=== PATIENT | female | born 1995 | race Caucasian/White ===

== ENCOUNTER 2017-12-14 20:55 | Inpatient (IN) | payer MEDICAID ==
[~2017-12-14] VITALS: Ht 149.9 cm; Wt 65.6 kg
[~2017-12-14 20:55] MED LIST: CEFU250T PO; HYDR-3240 PO; HYDR50CA PO; NORG1TAB6 PO; OXYC5TAB3 PO; PHEN177S47 MM; PRED10TA14 PO
[2017-12-14] MEDS ORDERED: SODIUM CHLORIDE 0.9% 1,000 ML IV ONE (22:18)
[2017-12-14 22:29] LABS: HCG UR SG 1.041 (1.003-1.030)
[2017-12-14] MEDS ORDERED: ACETAMINOPHEN 325 MG TABLET PO ONE (22:30)
[2017-12-14] MEDS ORDERED: ONDANSETRON 2MG/ML, 2ML IVPush ONE (22:30)
[2017-12-14] MEDS ORDERED: KETOROLAC 30 MG/1 ML IVPush ONE (22:30)
[2017-12-14] MEDS ORDERED: PROMETHAZINE 25 MG/ML, 1ML IM ONE (22:30)
[2017-12-14] MEDS ORDERED: SODIUM CHLORIDE 0.9% 1,000ML IVBOLUS ONE (22:30)
[2017-12-14] MEDS ORDERED: SODIUM CHLORIDE FLUSH 10ML SYR IVF ONE (22:30)
[2017-12-14 22:32] LABS: MICROSCOPIC INDICATED
[2017-12-14] MEDS ORDERED: KETOROLAC 30 MG/1 ML ONE (22:33)
[2017-12-14] MEDS ORDERED: PROMETHAZINE 25 MG/ML, 1ML ONE (22:33)
[2017-12-14] MEDS ORDERED: MORPHINE SULFATE 4 MG/ML, 1ML ONE (22:33)
[2017-12-14] MEDS ORDERED: ACETAMINOPHEN 325 MG TABLET ONE (22:33)
[2017-12-14] MEDS ORDERED: ONDANSETRON 2MG/ML, 2ML ONE (22:34)
[2017-12-14 22:35] LABS: BASOPHILS # (AUTO) 0.02 x10^3/uL (0-0.3); BASOPHILS % (AUTO) 0 % (0-1); EOSINOPHILS # (AUTO) 0.02 x10^3/uL (0-0.8); EOSINOPHILS % (AUTO) 0 % (1-7); LYMPHOCYTES # (AUTO) 0.67 x10^3/uL (1-6.1); LYMPHOCYTES % (AUTO) 12 % (22-44); MD NO; MEAN CORPUSCULAR HEMOGLOBIN 29.3 pg (27.0-34.8); MEAN CORPUSCULAR HGB CONC 34.1 g/dL (32.4-35.8); MEAN CORPUSCULAR VOLUME 85.9 fL (80-100); MEAN PLATELET VOLUME 8.5 fL (7.4-10.4); MONOCYTES # (AUTO) 0.67 x10^3/uL (0-1.4); MONOCYTES % (AUTO) 12 % (2-9); NEUTROPHILS # (AUTO) 4.21 x10^3/uL (1.8-8.0); NEUTROPHILS % (AUTO) 75 % (42-75); PLATELET COUNT 235 x10^3/uL (130-400); RED BLOOD COUNT 4.86 x10^6/uL (3.82-5.3); RED CELL DISTRIBUTION WIDTH 13.5 % (9.6-15.2)
[2017-12-14 22:39] LABS: CULTURE INDICATED? NO
[2017-12-14] MEDS: MORPHINE SULFATE 4 MG/ML, 1ML IVPush PRN (22:39)
[2017-12-14 22:47] LABS: ALANINE AMINOTRANSFERASE 34 U/L (12-78); ALBUMIN 4.2 g/dL (3.4-5.0); ANION GAP 13 mmol/L (5-15); CALCIUM 8.9 mg/dL (8.5-10.1); CHLORIDE 106 mmol/L (98-107); CREATININE 1.13 mg/dL (0.55-1.02)
[2017-12-14 22:50] LABS: ALKALINE PHOSPHATASE 75 U/L (45-117); BILIRUBIN,TOTAL 0.3 mg/dL (0.2-1.0); TOTAL PROTEIN 8.3 g/dL (6.4-8.2)
[2017-12-14] MEDS ORDERED: OMNIPAQUE 350 MG/ML, 100ML BOTTLE ONE (23:00)
[2017-12-15] MEDS ORDERED: MORPHINE SULFATE 4 MG/ML, 1ML ONE
[2017-12-15] MEDS: MORPHINE SULFATE 4 MG/ML, 1ML IVPush PRN (00:02)
[2017-12-15] MEDS ORDERED: ACETAMINOPHEN 325 MG TABLET PO PRN (01:00)
[2017-12-15] MEDS ORDERED: SODIUM CHLORIDE 0.9% 1,000 ML IV SCH (01:00)
[2017-12-15 01:34] VITALS: BP 107/59
[2017-12-15 01:56] VITALS: BP 107/59
[2017-12-15 04:51] LABS: ANION GAP 8 mmol/L (5-15); CALCIUM 7.2 mg/dL (8.5-10.1); CHLORIDE 114 mmol/L (98-107); CREATININE 0.81 mg/dL (0.55-1.02)
[2017-12-15] MEDS: KETOROLAC 30 MG/1 ML IVPush PRN ×2 (05:29→17:11)
[2017-12-15] MEDS: SODIUM BICARBONATE 8.4% 100 MEQ in DEXTROSE 5% 1,000 ML IV SCH ×2 (06:18→20:23)
[2017-12-15 06:23] LABS: GAMMA GLUTAMYL TRANSPEPTIDASE 14 U/L (5-55)
[2017-12-15 06:26] LABS: ALANINE AMINOTRANSFERASE 26 U/L (12-78); ALKALINE PHOSPHATASE 52 U/L (45-117)
[2017-12-15] MEDS: ONDANSETRON 2MG/ML, 2ML IVPush PRN (08:19)
[2017-12-15 08:47] VITALS: BP 104/63
[2017-12-15] MEDS ORDERED: PROCHLORPERAZINE 5 MG/ML, 2ML IM PRN (11:00)
[2017-12-15] MEDS ORDERED: MORPHINE SULFATE 4 MG/ML, 1ML IVPush PRN (11:00)
[2017-12-15] MEDS: PROCHLORPERAZINE 5 MG/ML, 2ML IV PRN ×2 (12:00→20:31)
[2017-12-15 15:02] VITALS: BP 112/69
[2017-12-15] MEDS: ACETAMINOPHEN 650 MG SUPP PR PRN ×2 (17:11→17:19)
[2017-12-15 20:28] VITALS: BP 99/58
[2017-12-16] MEDS ORDERED: KETOROLAC 30 MG/1 ML ONE (00:07)
[2017-12-16] MEDS: KETOROLAC 30 MG/1 ML IVPush PRN (00:12)
[2017-12-16 02:55] VITALS: BP 102/59
[2017-12-16] MEDS: PROCHLORPERAZINE 5 MG/ML, 2ML IV PRN (03:54)
[2017-12-16 05:06] LABS: CALCIUM 7.6 mg/dL (8.5-10.1); CHLORIDE 102 mmol/L (98-107)
[2017-12-16 05:12] LABS: ALANINE AMINOTRANSFERASE 26 U/L (12-78); ALKALINE PHOSPHATASE 49 U/L (45-117); ANION GAP 5 mmol/L (5-15); BILIRUBIN,TOTAL 0.2 mg/dL (0.2-1.0); CREATININE 0.67 mg/dL (0.55-1.02); MEAN CORPUSCULAR HEMOGLOBIN 29.3 pg (27.0-34.8); MEAN CORPUSCULAR HGB CONC 33.4 g/dL (32.4-35.8); MEAN CORPUSCULAR VOLUME 87.6 fL (80-100); MEAN PLATELET VOLUME 8.5 fL (7.4-10.4); PLATELET COUNT 179 x10^3/uL (130-400); RED BLOOD COUNT 3.97 x10^6/uL (3.82-5.3); RED CELL DISTRIBUTION WIDTH 13.3 % (9.6-15.2); TOTAL PROTEIN 5.8 g/dL (6.4-8.2)
[2017-12-16] MEDS: ONDANSETRON 2MG/ML, 2ML IVPush PRN (05:22)
[2017-12-16] MEDS: SODIUM BICARBONATE 8.4% 100 MEQ in DEXTROSE 5% 1,000 ML IV SCH (06:36)
[2017-12-16 06:41] LABS: BASOPHILS # (AUTO) 0.02 x10^3/uL (0-0.3); BASOPHILS % (AUTO) 1 % (0-1); EOSINOPHILS # (AUTO) 0.27 x10^3/uL (0-0.8); EOSINOPHILS % (AUTO) 7 % (1-7); LYMPHOCYTES # (AUTO) 2.05 x10^3/uL (1-6.1); LYMPHOCYTES % (AUTO) 51 % (22-44); MD SCAN; MONOCYTES # (AUTO) 0.36 x10^3/uL (0-1.4); MONOCYTES % (AUTO) 9 % (2-9); NEUTROPHILS # (AUTO) 1.33 x10^3/uL (1.8-8.0); NEUTROPHILS % (AUTO) 33 % (42-75)
[2017-12-16 07:40] VITALS: BP 127/68
[2017-12-16] MEDS: POTASSIUM CHLORIDE 40 MEQ in D5%-LACTATED RINGERS 1,000 ML IV SCH ×2 (08:30→16:40)
[2017-12-16] MEDS ORDERED: ONDANSETRON 2MG/ML, 2ML IVPush PRN (08:30)
[2017-12-16] MEDS ORDERED: KETOROLAC 30 MG/1 ML IVPush PRN (09:30)
[2017-12-16 11:31] LABS: FOLATE LEVEL 19.7 ng/mL (3.1-17.5)
[2017-12-16] MEDS ORDERED: SODIUM CHLORIDE 0.9% IV ONE (12:00)
[2017-12-16] MEDS ORDERED: PHARMACY INSTRUCTION MC ONE (12:00)
[2017-12-16] MEDS ORDERED: CAFFEINE CITRATE IV ONE (12:00)
[2017-12-16] MEDS ORDERED: morphine SULFATE 10 MG/ML, 1ML IVPush PRN (12:00)
[2017-12-16 12:12] VITALS: BP 100/61
[2017-12-16 18:33] LABS: CLOSTRIDIUM DIFFICILE ANTIGEN NEGATIVE; CLOSTRIDIUM DIFFICILE TOXIN NEGATIVE (Negative)
[2017-12-16 18:52] VITALS: BP 103/59
[2017-12-17] MEDS: POTASSIUM CHLORIDE 40 MEQ in D5%-LACTATED RINGERS 1,000 ML IV SCH ×2 (01:58→09:41)
[2017-12-17 02:00] VITALS: BP 107/63
[2017-12-17 07:04] VITALS: BP 96/55
[2017-12-17 14:19] VITALS: BP 109/71
== END 2017-12-17 15:30 | disposition home or self-care (01) | DRG 392 ==
LOC: ED 22:21 → EDIP 12-15 00:49 → 3NW 12-15 01:30
PROVIDERS: ADMIT Hospitalist; ATTEND Hospitalist
DX: A08.4 Viral intestinal infection, unspecified (principal); E87.2 Acidosis; R17 Unspecified jaundice; E66.3 Overweight; E86.0 Dehydration; K21.9 Gastro-esophageal reflux disease without esophagitis; Z87.440 Personal history of urinary (tract) infections; Z68.29 Body mass index [BMI] 29.0-29.9, adult
CPT/HCPCS: 36415; 71045; 74177; 80048; 80053; 81001; 81025; 82306; 82728; 82746; 82784; 82977; 83516; 83540; 83550; 83690; 83735; 84075; 84450; 84460; 84466; 85025; 86255; 87040; 87324; 96361; 96374; 96375; 96376; J1885; J2405; J2550; J3480; J7070; Q9967; J0780; J7030; J7040; J7121

== ENCOUNTER 2019-02-07 02:13 | Inpatient (IN) | payer MEDICAID ==
[~2019-02-07] VITALS: Ht 152.4 cm; Wt 76.3 kg
[2019-02-07] MEDS ORDERED: ONDANSETRON 2MG/ML, 2ML ONE (02:24)
[2019-02-07] MEDS ORDERED: PROMETHAZINE 25 MG/ML, 1ML ONE (02:24)
[2019-02-07] MEDS ORDERED: MORPHINE SULFATE 4 MG/ML, 1ML ONE (02:24)
[2019-02-07] MEDS ORDERED: FAMOTIDINE 20 MG/2 ML ONE (02:25)
[2019-02-07] MEDS ORDERED: ONDANSETRON 2MG/ML, 2ML IVPush ONE (02:30)
[2019-02-07] MEDS ORDERED: SODIUM CHLORIDE 0.9% 1,000ML IVBOLUS ONE (02:30)
[2019-02-07] MEDS ORDERED: FAMOTIDINE 20 MG/2 ML IVP ONE (02:30)
[2019-02-07] MEDS ORDERED: SODIUM CHLORIDE FLUSH 10ML SYR IVF ONE (02:30)
[2019-02-07] MEDS ORDERED: MORPHINE SULFATE 4 MG/ML, 1ML IVPush PRN (02:30)
[2019-02-07] MEDS ORDERED: PROMETHAZINE 25 MG/ML, 1ML IM ONE (02:30)
[2019-02-07 02:51] LABS: BASOPHILS % (AUTO) 0 % (0-1); EOSINOPHILS # (AUTO) 0.03 x10^3/uL (0-0.4); EOSINOPHILS % (AUTO) 0 % (1-7); LYMPHOCYTES % (AUTO) 13 % (22-44); MD NO; MEAN CORPUSCULAR HEMOGLOBIN 29.1 pg (27.0-34.8); MEAN CORPUSCULAR HGB CONC 33.9 g/dL (32.4-35.8); MEAN CORPUSCULAR VOLUME 85.8 fL (80-100); MEAN PLATELET VOLUME 7.4 fL (7.4-10.4); MONOCYTES # (AUTO) 0.13 x10^3/uL (0.2-0.8); MONOCYTES % (AUTO) 1 % (2-9); NEUTROPHILS # (AUTO) 10.07 x10^3/uL (1.8-6.8); NEUTROPHILS % (AUTO) 86 % (42-75); PLATELET COUNT 355 x10^3/uL (130-400); RED BLOOD COUNT 4.33 x10^6/uL (3.82-5.3)
[2019-02-07 03:08] LABS: ALANINE AMINOTRANSFERASE 31 U/L (12-78); ALBUMIN 3.9 g/dL (3.4-5.0); ANION GAP 10 mmol/L (5-15); CALCIUM 8.3 mg/dL (8.5-10.1); CHLORIDE 113 mmol/L (98-107); CREATININE 0.84 mg/dL (0.55-1.02)
[2019-02-07 03:12] LABS: ALKALINE PHOSPHATASE 77 U/L (45-117); BILIRUBIN,TOTAL 0.2 mg/dL (0.2-1.0); TOTAL PROTEIN 7.2 g/dL (6.4-8.2)
--- NOTE | 2019-02-07 03:13 | NUR ---
LATE ENTRY PT ARRIVED BY EMS FOR UPPER BURNING ABDOMINAL PAIN THAT STARTED TONIGHT. HAD 1 EMESIS EPISODE UPON ARRIVAL. PT HYPERVENTILATING, CRYING, AND GRABBING ABDOMEN. PT DID DRINK 1/2 GALLON OF [employer]. PHYSICIAN WAS AT BEDSIDE UPON ARRIVAL. MEDS ORDERED AND GIVEN. PT NOW SLEEPING. VSS.
--- NOTE | 2019-02-07 03:32 | NUR ---
PHYSICIAN AT BEDSIDE. UPDATED ON POC
--- NOTE | 2019-02-07 04:01 | NUR ---
REPORT GIVEN TO DOROTEO GRIFFIN. QUESTIONS ANSWERED.
[2019-02-07] MEDS ORDERED: morphine SULFATE 10 MG/ML, 1ML IVPush PRN (04:30)
[2019-02-07] MEDS ORDERED: ONDANSETRON 2MG/ML, 2ML IVPush PRN (04:30)
[2019-02-07] MEDS ORDERED: LORazepam 2 MG/ML, 1ML IVPush PRN (04:30)
[2019-02-07] MEDS ORDERED: hydrALAzine 20 MG/ML, 1ML IVPush PRN (04:30)
[2019-02-07] MEDS: SODIUM CHLORIDE 0.9% 1,000 ML IV SCH ×3 (04:41→23:51)
[2019-02-07 04:50] VITALS: BP 93/57
[2019-02-07 08:45] VITALS: BP 90/49
[2019-02-07] MEDS ORDERED: ACETAMINOPHEN 325 MG TABLET ONE ×2 (11:48)
[2019-02-07] MEDS: ACETAMINOPHEN 325 MG TABLET PO PRN ×2 (11:50→20:21)
[2019-02-07] MEDS ORDERED: POTASSIUM PHOSPHATE 44 MEQ in SODIUM CHLORIDE 0.9% 500 ML IV ONE (13:30)
[2019-02-07 14:03] VITALS: BP 94/58
[2019-02-07] MEDS: PANTOPRAZOLE 20MG TABLET PO SCH (15:54)
[2019-02-07 19:01] VITALS: BP 93/64
[2019-02-08 02:00] VITALS: BP 97/59
[2019-02-08] MEDS: PANTOPRAZOLE 20MG TABLET PO SCH (05:35)
[2019-02-08 05:55] LABS: CHLORIDE 113 mmol/L (98-107)
[2019-02-08 06:14] LABS: ALANINE AMINOTRANSFERASE 24 U/L (12-78); ALBUMIN 3.1 g/dL (3.4-5.0); ALKALINE PHOSPHATASE 65 U/L (45-117); ANION GAP 6 mmol/L (5-15); BILIRUBIN,TOTAL 0.4 mg/dL (0.2-1.0); CALCIUM 7.8 mg/dL (8.5-10.1); CREATININE 0.63 mg/dL (0.55-1.02); TOTAL PROTEIN 5.6 g/dL (6.4-8.2)
[2019-02-08 06:26] LABS: BASOPHILS # (AUTO) 0.04 x10^3/uL (0-0.1); BASOPHILS % (AUTO) 1 % (0-1); EOSINOPHILS # (AUTO) 0.48 x10^3/uL (0-0.4); EOSINOPHILS % (AUTO) 6 % (1-7); LYMPHOCYTES # (AUTO) 3.63 x10^3/uL (1-3.4); LYMPHOCYTES % (AUTO) 43 % (22-44); MD NO; MEAN CORPUSCULAR HEMOGLOBIN 29.4 pg (27.0-34.8); MEAN CORPUSCULAR HGB CONC 33.8 g/dL (32.4-35.8); MEAN PLATELET VOLUME 7.4 fL (7.4-10.4); MONOCYTES # (AUTO) 0.49 x10^3/uL (0.2-0.8); MONOCYTES % (AUTO) 6 % (2-9); NEUTROPHILS # (AUTO) 3.79 x10^3/uL (1.8-6.8); NEUTROPHILS % (AUTO) 45 % (42-75); PLATELET COUNT 250 x10^3/uL (130-400); RED BLOOD COUNT 3.86 x10^6/uL (3.82-5.3); RED CELL DISTRIBUTION WIDTH 14.2 % (9.6-15.2)
[2019-02-08] MEDS: SODIUM CHLORIDE 0.9% 1,000 ML IV SCH (07:46)
[2019-02-08 08:40] VITALS: BP 102/66
[2019-02-08] MEDS ORDERED: FOLIC ACID 1 MG TABLET PO SCH (09:00)
[2019-02-08] MEDS ORDERED: THIAMINE 100MG TABLET PO SCH (09:00)
== END 2019-02-08 13:38 | disposition home or self-care (01) | DRG 440 ==
LOC: ED 02:44 → EDIP 03:31 → 4NOR 04:15 → DCLOUNGE 02-08 13:34
PROVIDERS: ADMIT Family Medicine; ATTEND Family Medicine
DX: K85.20 Alcohol induced acute pancreatitis without necrosis or infection (principal); E66.9 Obesity, unspecified; Z68.32 Body mass index [BMI] 32.0-32.9, adult; E86.0 Dehydration; F17.200 Nicotine dependence, unspecified, uncomplicated; K21.9 Gastro-esophageal reflux disease without esophagitis; Y90.9 Presence of alcohol in blood, level not specified; F10.129 Alcohol abuse with intoxication, unspecified; Z90.89 Acquired absence of other organs; Z88.0 Allergy status to penicillin; Z71.6 Tobacco abuse counseling; Z71.41 Alcohol abuse counseling and surveillance of alcoholic
CPT/HCPCS: 36415; 99285; J3490; 76700; 80053; 80307; 83690; 83735; 84100; 84478; 84703; 85025; 96372; 96374; 96375; G0378; J2405; J2550; J7030; J7040

== ENCOUNTER 2019-09-04 11:39 | Emergency (ER) | payer MEDICAID ==
[~2019-09-04] VITALS: Ht 152.4 cm; Wt 77.1 kg
--- NOTE | 2019-09-04 12:40 | NUR ---
IV PLACED, LABS DRAWN. NS BOLUS INFUSING. VSS/UPDATED IN COMPUTER. PT TO/FROM XRAY. CALL LIGHT WITHIN REACH, WARM BLANKET PROVIDED.
[2019-09-04 12:48] LABS: BASOPHILS # (AUTO) 0.02 x10^3/uL (0-0.1); BASOPHILS % (AUTO) 0 % (0-1); EOSINOPHILS # (AUTO) 0.08 x10^3/uL (0-0.4); EOSINOPHILS % (AUTO) 1 % (1-7); LYMPHOCYTES # (AUTO) 1.37 x10^3/uL (1-3.4); LYMPHOCYTES % (AUTO) 20 % (22-44); MD NO; MEAN CORPUSCULAR HEMOGLOBIN 29.2 pg (27.0-34.8); MEAN CORPUSCULAR HGB CONC 33.3 g/dL (32.4-35.8); MEAN CORPUSCULAR VOLUME 87.6 fL (80-100); MEAN PLATELET VOLUME 7.8 fL (7.4-10.4); MONOCYTES # (AUTO) 0.53 x10^3/uL (0.2-0.8); MONOCYTES % (AUTO) 8 % (2-9); NEUTROPHILS # (AUTO) 4.76 x10^3/uL (1.8-6.8); NEUTROPHILS % (AUTO) 70 % (42-75); PLATELET COUNT 317 x10^3/uL (130-400); RED CELL DISTRIBUTION WIDTH 13.2 % (9.6-15.2)
[2019-09-04] MEDS ORDERED: SODIUM CHLORIDE 0.9% 1,000ML IVBOLUS ONE (13:00)
[2019-09-04 13:01] LABS: ALBUMIN 3.9 g/dL (3.4-5.0); ANION GAP 11 mmol/L (5-15); CALCIUM 8.7 mg/dL (8.5-10.1); CHLORIDE 108 mmol/L (98-107)
[2019-09-04 13:06] LABS: CREATININE 0.97 mg/dL (0.55-1.02); TROPONIN I < 0.015 ng/mL (0.000-0.045)
[2019-09-04 13:07] LABS: RAPID INFLUENZA A Negative (Negative); RAPID INFLUENZA B Negative (Negative)
[2019-09-04] MEDS ORDERED: ACETAMINOPHEN 500 MG TABLET ONE (13:08)
--- NOTE | 2019-09-04 13:11 | NUR ---
EKG COMPLTETED. TYLENOL GIVEN PER PT REQUEST FOR PAIN. PT STATES "I HAVE A HIGH TOLERANCE, I USUALLY NEED A MORPHINE SHOT".
[2019-09-04 13:15] VITALS: BP 112/78
[2019-09-04] MEDS ORDERED: KETOROLAC 30 MG/1 ML ONE (13:17)
[2019-09-04] MEDS ORDERED: POTASSIUM CHLORIDE 20 MEQ TAB.ER.PRT ONE (13:26)
[2019-09-04] MEDS ORDERED: KETOROLAC 30 MG/1 ML IVPush ONE (13:30)
[2019-09-04] MEDS ORDERED: POTASSIUM CHLORIDE 20 MEQ TAB.ER.PRT PO ONE (13:30)
[2019-09-04] MEDS ORDERED: ACETAMINOPHEN 500 MG TABLET PO ONE (13:30)
== END 2019-09-04 13:36 | disposition home or self-care (01) ==
LOC: ED 13:28
DX: J06.9 Acute upper respiratory infection, unspecified (principal); E87.6 Hypokalemia; K21.9 Gastro-esophageal reflux disease without esophagitis; Z87.891 Personal history of nicotine dependence
CPT/HCPCS: 36415; 71046; 80048; 82040; 84484; 84703; 85025; 85379; 87400; 93005; 96374; 99284; J1885; J7030

== ENCOUNTER 2019-12-02 09:57 | Emergency (ER) | payer MEDICAID ==
[~2019-12-02] VITALS: Ht 152.4 cm; Wt 77.0 kg
--- NOTE | 2019-12-02 10:15 | NUR ---
FIRST CONTACT WITH PT. PT C/O COUGH X 2 WEEKS; N/V X 2 DAYS. PT'S AOX4. RESPS EVEN AND UNLABORED. BP/SPO2 MONITORS IN PLACE. CALL LIGHT WITHIN REACH.
[2019-12-02] MEDS ORDERED: MAALOX/HYOSCYAMINE/LIDOCAINE 45 ML BTL ONE (10:24)
[2019-12-02] MEDS ORDERED: ONDANSETRON 2MG/ML, 2ML ONE (10:24)
[2019-12-02] MEDS ORDERED: FAMOTIDINE 20 MG/2 ML ONE (10:24)
[2019-12-02] MEDS ORDERED: SODIUM CHLORIDE FLUSH 10ML SYR IVF ONE (10:30)
[2019-12-02] MEDS ORDERED: FAMOTIDINE 20 MG/2 ML IV ONE (10:30)
[2019-12-02] MEDS ORDERED: SODIUM CHLORIDE 0.9% 1,000ML IVBOLUS ONE (10:30)
[2019-12-02] MEDS ORDERED: MAALOX/HYOSCYAMINE/LIDOCAINE 45 ML BTL PO ONE (10:30)
[2019-12-02] MEDS ORDERED: ONDANSETRON 2MG/ML, 2ML IVPush ONE (10:30)
--- NOTE | 2019-12-02 10:41 | NUR ---
pt medicated per emar. pt tolerated well. pt's aox4. resps even and unlabored.
--- NOTE | 2019-12-02 10:51 | NUR ---
PT PROVIDED URINE SAMPLE AT THIS TIME. UA SENT.
[2019-12-02 11:06] LABS: BASOPHILS # (AUTO) 0.04 x10^3/uL (0-0.1); BASOPHILS % (AUTO) 1 % (0-1); EOSINOPHILS # (AUTO) 0.38 x10^3/uL (0-0.4); EOSINOPHILS % (AUTO) 5 % (1-7); LYMPHOCYTES # (AUTO) 2.47 x10^3/uL (1-3.4); LYMPHOCYTES % (AUTO) 32 % (22-44); MD NO; MEAN CORPUSCULAR HEMOGLOBIN 29.1 pg (27.0-34.8); MEAN CORPUSCULAR VOLUME 87.9 fL (80-100); MEAN PLATELET VOLUME 7.5 fL (7.4-10.4); MONOCYTES # (AUTO) 0.48 x10^3/uL (0.2-0.8); MONOCYTES % (AUTO) 6 % (2-9); NEUTROPHILS # (AUTO) 4.34 x10^3/uL (1.8-6.8); NEUTROPHILS % (AUTO) 56 % (42-75); PLATELET COUNT 356 x10^3/uL (130-400); RED BLOOD COUNT 4.52 x10^6/uL (3.82-5.3); RED CELL DISTRIBUTION WIDTH 13.3 % (9.6-15.2)
[2019-12-02 11:06] LABS: MICROSCOPIC NOT IND
[2019-12-02 11:10] LABS: CULTURE INDICATED? NO
[2019-12-02 11:20] LABS: ALANINE AMINOTRANSFERASE 23 U/L (12-78); ALBUMIN 3.5 g/dL (3.4-5.0); ANION GAP 6 mmol/L (5-15); CALCIUM 8.1 mg/dL (8.5-10.1); CHLORIDE 112 mmol/L (98-107); CREATININE 0.71 mg/dL (0.55-1.02)
[2019-12-02 11:24] LABS: ALKALINE PHOSPHATASE 84 U/L (45-117); BILIRUBIN,TOTAL 0.3 mg/dL (0.2-1.0)
--- NOTE | 2019-12-02 11:38 | NUR ---
PT RESTING IN [facility]. PT'S AOX4. RESPS EVEN AND UNLABORED.
[2019-12-02 12:21] VITALS: BP 124/89
--- NOTE | 2019-12-02 12:36 | NUR ---
Patient/Caregiver given discharge instructions and they have confirmed that they understand the instructions. Patient ambulatory with steady gait.
== END 2019-12-02 12:37 | disposition home or self-care (01) ==
LOC: ED 10:48
DX: K52.9 Noninfective gastroenteritis and colitis, unspecified (principal); J00 Acute nasopharyngitis [common cold]; R11.2 Nausea with vomiting, unspecified; K21.9 Gastro-esophageal reflux disease without esophagitis
CPT/HCPCS: 36415; 71046; 80053; 81003; 83690; 84703; 85025; 96361; 96374; 96375; 99284; J2405; J3490; J7030

== ENCOUNTER 2020-03-31 20:20 | Emergency (ER) | payer MEDICAID, OTHER ==
[~2020-03-31] VITALS: Ht 152.4 cm; Wt 81.6 kg
[2020-03-31] MEDS ORDERED: KETOROLAC 30 MG/1 ML IVPush ONE (21:00)
[2020-03-31] MEDS ORDERED: METOCLOPRAMIDE 5 MG/ML, 2ML IVPush ONE (21:00)
[2020-03-31] MEDS ORDERED: DIPHENHYDRAMINE 50 MG/ML, 1ML IVPush ONE (21:00)
[2020-03-31] MEDS ORDERED: SODIUM CHLORIDE FLUSH 10ML SYR IVF ONE (21:00)
[2020-03-31] MEDS ORDERED: KETOROLAC 30 MG/1 ML ONE (21:22)
[2020-03-31] MEDS ORDERED: DIPHENHYDRAMINE 50 MG/ML, 1ML ONE (21:22)
[2020-03-31] MEDS ORDERED: METOCLOPRAMIDE 5 MG/ML, 2ML ONE (21:23)
--- NOTE | 2020-03-31 21:37 | NUR ---
PT IN GOWN IN [facility] ATTACHED TO VS MONITORS. VSS AT THIS TIME. PIV ACCESS ESTABLISHED AND PT WAS MEDICATED PER MAR AT THIS TIME. PT RESTING IN [facility] WITH CALL LIGHT WITHIN REACH AND DENIES ANY OTHER NEEDS AT THIS TIME.
[2020-03-31 22:38] VITALS: BP 97/67
== END 2020-03-31 22:50 ==
LOC: ED 22:45
DX: G43.909 Migraine, unspecified, not intractable, without status migrainosus (principal); R11.0 Nausea; H92.03 Otalgia, bilateral; K21.9 Gastro-esophageal reflux disease without esophagitis; F17.200 Nicotine dependence, unspecified, uncomplicated; Z90.89 Acquired absence of other organs
CPT/HCPCS: 96374; 96375; 99284; J1200; J1885; J2765

== ENCOUNTER 2020-07-22 15:30 | Emergency (ER) | payer OTHER ==
[~2020-07-22] VITALS: Ht 152.4 cm; Wt 83.2 kg
--- NOTE | 2020-07-22 15:43 | NUR ---
PT C/O STREP OR AN EAR INFECTION ON THE RIGHT SIDE; HURTS TO SWALLOW, TALK. SX X 1 WEEK, WORSENING. NO PAIN MEDS TAKEN. DENIES DYSPNEA, COUGH, COVID SX, OTHER FAMILY MEMBERS BEING ILL. WAS TESTED FOR COVID 2 WEEKS AGO: NEGATIVE.
[2020-07-22] MEDS ORDERED: DEXAMETHASONE 4 MG TABLET PO STA (16:09)
[2020-07-22] MEDS ORDERED: DEXAMETHASONE 4 MG TABLET ONE (16:31)
[2020-07-22 16:34] VITALS: BP 125/78
== END 2020-07-22 16:49 | disposition home or self-care (01) ==
LOC: ED 16:33
DX: J02.0 Streptococcal pharyngitis (principal); H92.01 Otalgia, right ear; K21.9 Gastro-esophageal reflux disease without esophagitis; F17.210 Nicotine dependence, cigarettes, uncomplicated
CPT/HCPCS: 99283; 99406

== ENCOUNTER 2021-05-03 15:11 | Emergency (ER) | payer SELFPAY ==
[~2021-05-03] VITALS: Ht 152.4 cm; Wt 84.9 kg
[~2021-05-03 15:11] MED LIST changes: +HYDR-2214 PO; -HYDR-3240 PO; -OXYC5TAB3 PO; +OXYC5TAB98 PO
[2021-05-03 16:52] LABS: BASOPHILS % (AUTO) 0 % (0-1); EOSINOPHILS % (AUTO) 5 % (1-7); LYMPHOCYTES % (AUTO) 33 % (22-44); MEAN CORPUSCULAR HEMOGLOBIN 29.3 pg (27.0-34.8); MEAN CORPUSCULAR HGB CONC 33.1 g/dL (32.4-35.8); MEAN PLATELET VOLUME 7.7 fL (7.4-10.4); MONOCYTES % (AUTO) 7 % (2-9); NEUTROPHILS % (AUTO) 55 % (42-75); PLATELET COUNT 357 x10^3/uL (130-400); RED BLOOD COUNT 4.41 x10^6/uL (3.82-5.3); RED CELL DISTRIBUTION WIDTH 13.8 % (9.6-15.2)
[2021-05-03 17:02] LABS: ALBUMIN 3.7 g/dL (3.4-5.0); ANION GAP 3 mmol/L (5-15); CALCIUM 8.9 mg/dL (8.5-10.1); CHLORIDE 110 mmol/L (98-107)
[2021-05-03 17:06] LABS: CREATININE 0.78 mg/dL (0.55-1.02)
--- NOTE | 2021-05-03 18:14 | NUR ---
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
--- NOTE | 2021-05-03 18:24 | NUR ---
INITAL CONTACT WITH PT: "I HAD INTERCOURSE AND THEN DIDN'T HAVE PERIODS FOR 5 MONTHS, AND YESTERDAY I STARTED BLEEDING VAGINALLY WITH CRAMPING." PT REPORTS TAKING MULTIPLE PREG TESTS THAT WERE ALL NEGATIVE. PT WITH STEADY GAIT TO ROOM. ATTACHED TO MONITORS. VSS. CHANDRA.
--- NOTE | 2021-05-03 18:49 | NUR ---
REPORT NOC GABY SALDANA
--- NOTE | 2021-05-03 19:20 | NUR ---
Patient is resting comfortably in bed. Bed in lowest, rails engaged, call light on lap. Vital Signs within normal limits. WCTM. AWAITING PELVIC EXAM. DELVINN. WCTM
--- NOTE | 2021-05-03 19:48 | NUR ---
GYNY BED PUT INTO ROOM. AWAITING PELVIC EXAM. NADN. VSS. BF AT BEDSIDE. WCTM LATE ENTRY. PUT NOTE ON WRONG PT.
[2021-05-03 20:44] VITALS: BP 119/66
== END 2021-05-03 20:50 | disposition home or self-care (01) ==
LOC: ED 20:40
DX: N93.8 Other specified abnormal uterine and vaginal bleeding (principal)
CPT/HCPCS: 36415; 76830; 80048; 82040; 84703; 85025; 99284

== ENCOUNTER 2021-05-17 10:38 | Emergency (ER) | payer SELFPAY ==
[~2021-05-17] VITALS: Ht 152.4 cm; Wt 84.7 kg
[2021-05-17 11:01] VITALS: BP 116/73
--- NOTE | 2021-05-17 11:56 | NUR ---
PA AT BS
--- NOTE | 2021-05-17 12:25 | NUR ---
Patient given discharge instructions and RX, they have confirmed that they understand the instructions. Patient ambulatory with steady gait.
== END 2021-05-17 12:26 | disposition home or self-care (01) ==
LOC: ED 11:42
DX: J01.00 Acute maxillary sinusitis, unspecified (principal); B96.89 Other specified bacterial agents as the cause of diseases classified elsewhere; G43.909 Migraine, unspecified, not intractable, without status migrainosus; K21.9 Gastro-esophageal reflux disease without esophagitis
CPT/HCPCS: 99283

== ENCOUNTER 2021-06-30 12:00 | Emergency (ER) | payer OTHER ==
[~2021-06-30] VITALS: Ht 152.4 cm; Wt 81.8 kg
[2021-06-30 12:03] VITALS: BP 117/83
[2021-06-30] MEDS ORDERED: SODIUM CHLORIDE 0.9% 1,000ML IVBOLUS ONE (13:00)
[2021-06-30] MEDS ORDERED: ONDANSETRON 2MG/ML, 2ML IVPush ONE (13:00)
[2021-06-30] MEDS ORDERED: FAMOTIDINE 20 MG/2 ML IVPush ONE (13:00)
[2021-06-30 13:26] LABS: BASOPHILS % (AUTO) 1 % (0-1); EOSINOPHILS % (AUTO) 4 % (1-7); LYMPHOCYTES % (AUTO) 31 % (22-44); MEAN CORPUSCULAR HEMOGLOBIN 29.4 pg (27.0-34.8); MEAN CORPUSCULAR HGB CONC 33.7 g/dL (32.4-35.8); MEAN PLATELET VOLUME 7.5 fL (7.4-10.4); MONOCYTES % (AUTO) 10 % (2-9); NEUTROPHILS % (AUTO) 54 % (42-75); PLATELET COUNT 385 x10^3/uL (130-400); RED CELL DISTRIBUTION WIDTH 13.6 % (9.6-15.2)
[2021-06-30 13:34] LABS: CALCIUM 9.4 mg/dL (8.5-10.1); CHLORIDE 106 mmol/L (98-107)
[2021-06-30 13:43] LABS: ALANINE AMINOTRANSFERASE 22 U/L (12-78); ALBUMIN 4.1 g/dL (3.4-5.0); ALKALINE PHOSPHATASE 86 U/L (45-117); ANION GAP 8 mmol/L (5-15); BILIRUBIN,TOTAL 0.8 mg/dL (0.2-1.0); CREATININE 0.83 mg/dL (0.55-1.02); TOTAL PROTEIN 7.9 g/dL (6.4-8.2)
[2021-06-30] MEDS ORDERED: ONDANSETRON ODT 8 MG ONE (14:03)
--- NOTE | 2021-06-30 14:15 | NUR ---
PT REC'VD DISCHARGE INSTRUCTION AND EDUCATION. PT HAD NO FURTHER QUESTIONS. PT AMBULATED TO DC AREA, STEADY GAIT.
--- NOTE | 2021-06-30 14:17 | NUR ---
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 PT LEFT AMB, GAIT STEADY
[2021-06-30] MEDS ORDERED: ONDANSETRON ODT 4 MG PO ONE (14:30)
== END 2021-06-30 14:19 | disposition home or self-care (01) ==
LOC: ED 14:00
DX: R11.2 Nausea with vomiting, unspecified (principal); R19.7 Diarrhea, unspecified
CPT/HCPCS: 36415; 80053; 83690; 84703; 85025; 99283; Q0162